=== PATIENT | female | born 1990 | race Caucasian/White ===

== ENCOUNTER 2017-10-12 08:47 | Emergency (ER) | payer MEDICAID ==
[~2017-10-12] VITALS: Ht 160 cm; Wt 82.0 kg
[2017-10-12] MEDS ORDERED: KETOROLAC 60MG/2ML VIAL IM STA (10:36)
[2017-10-12] MEDS ORDERED: CEFTRIAXONE SODIUM 1 G/VIAL IM ONE (10:45)
[2017-10-12] MEDS ORDERED: LIDOCAINE HCL 1% 20ML VIAL (Pyxis) INJ INFIL ONE (10:45)
[2017-10-12] MEDS ORDERED: LIDOCAINE HCL/PF 1% 10 MG/ML 5ML VIAL IJ ONE (10:45)
[2017-10-12 11:50] VITALS: BP 125/84
== END 2017-10-12 11:57 | disposition home or self-care (01) ==
LOC: ER 10:50
DX: J03.90 Acute tonsillitis, unspecified (principal)
CPT/HCPCS: 96372; 99284; J0696; J1885; J3490